=== PATIENT | female | born 1985 | race Caucasian/White ===

== ENCOUNTER 2017-10-30 14:00 | Emergency (ER) | payer OTHER ==
[2017-10-30 14:06] VITALS: BP 137/79
[2017-10-30 14:23] LABS: BILIRUBIN,URINE NEGATIVE (NEGATIVE); GLUCOSE, URINE (UA) NEGATIVE (NEGATIVE); KETONES,URINE (UA) NEGATIVE (NEGATIVE); LEUKOCYTE ESTERASE, URINE LARGE (NEGATIVE); NITRITE,URINE NEGATIVE (NEGATIVE); OCCULT BLOOD,URINE LARGE (NEGATIVE); PROTEIN,URINE NEGATIVE (NEGATIVE); UROBILINOGEN,URINE 0.2 (NORMAL) E.U./dL (NORMAL)
[2017-10-30 14:24] LABS: CLARITY,URINE CLOUDY (CLEAR); HCG UR QUAL NEGATIVE
[2017-10-30] MEDS ORDERED: NITROFURANTOIN MACRO 100 MG CAPSULE PO STA (14:40)
[2017-10-30] MEDS ORDERED: PHENAZOPYRIDINE 100 MG TABLET PO STA (14:40)
--- NOTE | 2017-10-30 14:42 | ED Physician Documentation ---
PD HPI FEMALE - Stated complaint Stated Complaint: FEMALE - Chief complaint Chief Complaint: Abd Pain - History obtained from History obtained from: Patient - History of Present Illness Timing - onset: Today (Urinary frequency and dysuria starting last night, no frequent UTIs only one in her life. No flank pain or fevers.) Review of Systems Constitutional: denies: Fever, Chills GI: denies: Abdominal Pain, Nausea : reports: Dysuria, Frequency. 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, Other - Present Medications Home Medications: Ambulatory Orders Medication Instructions Recorded Confirmed Levothyroxine Sodium [Synthroid] 10/30/17 10/30/17 Nitrofurantoin Monohyd/M-Cryst 1 tab PO BID 5 Days capsule 10/30/17 [Macrobid 100 mg Capsule] Phenazopyridine HCl [Pyridium] 200 mg PO TID #6 tablet 10/30/17 - Allergies Allergies/Adverse Reactions: Allergies Allergy/AdvReac Type Severity Reaction Status Date / Time No Known Drug Allergies Allergy Verified 10/30/17 14:05 - Social History Does the pt smoke?: Yes Smoking Status: Current every day smoker Does the pt drink ETOH?: Yes Does the pt have substance abuse?: No - Immunizations Immunizations are current?: Yes Immunizations: TDAP >10years/unknown PD ED PE NORMAL - Vitals Vital signs reviewed: Yes - General General: Alert and oriented X 3, No acute distress - Abdomen Abdomen: Soft, Non tender - Back Back: No CVA TTP - Neuro Neuro: Alert and oriented X 3, Normal speech Results - Vitals Vitals: Vital Signs - 24 hr 10/30/17 14:03 Temperature 36.5 C Heart Rate 74 Respiratory 20 Rate Blood Pressure 137/79 H O2 Saturation 100 Oxygen O2 Source Room air - Labs Labs: Laboratory Tests 10/30/17 14:10 Urine Color YELLOW Urine Clarity CLOUDY Urine pH 7.0 Ur Specific [place] 1.010 Urine Protein NEGATIVE Urine Glucose (UA) NEGATIVE Urine Ketones NEGATIVE Urine Occult Blood LARGE H Urine Nitrite NEGATIVE Urine Bilirubin NEGATIVE Urine Urobilinogen 0.2 (NORMAL) Ur Leukocyte Esterase LARGE H Urine RBC 6-10 H Urine WBC >25 H Ur Squamous Epith Cells RARE Squamous Urine Bacteria None Seen Ur Microscopic Review INDICATED Urine Culture Comments INDICATED Urine HCG, Qual NEGATIVE PD MEDICAL DECISION MAKING - Sepsis Event Vital Signs: Vital Signs - 24 hr 10/30/17 14:03 Temperature 36.5 C Heart Rate 74 Respiratory 20 Rate Blood Pressure 137/79 H O2 Saturation 100 Oxygen O2 Source Room air Departure - Departure Disposition: 01 Home, Self Care Clinical Impression: Cystitis Condition: Good Record reviewed to determine appropriate education?: Yes Instructions: ED UTI Cystitis Female Prescriptions: Nitrofurantoin Monohyd/M-Cryst [Macrobid 100 mg Capsule] 1 tab PO BID 5 Days capsule Phenazopyridine HCl [Pyridium] 200 mg PO TID #6 tablet Comments: We will culture your urine, the results should be done in 48-72 hours. If an antibiotic change is necessary we will call you. Return if worse in the meantime, especially if you develop increasing flank pain, fevers, or cannot keep down the medication. Your blood pressure was elevated today on check into the emergency department. This does not mean that you have hypertension, it is a common phenomenon to come to the emergency department and have elevated blood pressure. I recommend that you see your primary care physician within the week to have it rechecked when you are feeling better. Discharge Date/Time: 10/30/17 14:51
[2017-10-30 14:57] LABS: BACTERIA,URINE None Seen /HPF (None Seen); SQUAMOUS EPITHELIAL CELL,UR RARE Squamous (<= Few)
--- NOTE | 2017-11-03 06:14 | ED Physician Documentation ---
ED Addendum - Addendum Addendum: 11/03/17 06:13 Chart accessed for culture review. Culture of urine grows enterobacter aerogenes with intermediate sensitivity to macrobid. Recommend bactrim DS 1 tab PO BID x 7 days
== END 2017-10-30 14:51 | disposition home or self-care (01) ==
LOC: ED 14:00
DX: N30.90 Cystitis, unspecified without hematuria (principal); R03.0 Elevated blood-pressure reading, without diagnosis of hypertension
CPT/HCPCS: 81001; 81025; 87077; 87086; 99283; A9270; 81003; 87181

== ENCOUNTER 2019-01-31 07:55 | Emergency (ER) | payer OTHER ==
[2019-01-31 08:23] VITALS: BP 111/72
--- NOTE | 2019-01-31 09:23 | ED Physician Documentation ---
PD HPI BACK PAIN - Stated complaint Stated Complaint: BACK PX - Chief complaint Chief Complaint: Back Pain - History obtained from History obtained from: Patient - History of Present Illness Timing - onset: Today Timing - duration: Hours (2.5) Timing - details: Abrupt onset, Still present in ED Location: Lower Quality: Pain Associated symptoms: Numbness (Chronic in left foot). No: Fever, Weakness, Incontinent of urine Improves with: Nothing Worsened by: Movement Similar symptoms before: Work up / diagnostics Recently seen: Not recently seen - Additional information Additional information: This is a 33-year-old woman who presents with complaints that she threw her back out putting a towel on her wet hair this morning at about 715 and she was getting out of the shower. She had taken her Synthroid right before this happened and she is not allowed to eat or drink anything for an hour afterwards so she did not take any medications for it just came straight to the emergency department for treatment. She says the pain is in the " center" of her lower back and radiates down towards the gluteal midline. Denies pain radiating down the legs but her left leg is numb chronically. She also has a broken left foot fifth metatarsal Kaiser fracture since September and she was in so much pain she was anyone able to put the boot on today. She denies any prior back surgery but had an MRI a year and a half ago that showed osteoarthritis, pinched nerves and degenerative disc disease. That exam was done in [facility]. Patient denies any urinary incontinence. States she cannot get because she does not have any tubes. 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 No recent illness. Review of Systems Constitutional: denies: Fever GI: denies: Vomiting : denies: Dysuria, Incontinent Skin: denies: Rash Musculoskeletal: reports: Back pain Neurologic: reports: Numbness (Chronic of the left foot). 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, Other - Present Medications Home Medications: Ambulatory Orders Medication Instructions Recorded Confirmed Levothyroxine Sodium [Synthroid] 10/30/17 10/30/17 - Allergies Allergies/Adverse Reactions: Allergies Allergy/AdvReac Type Severity Reaction Status Date / Time No Known Drug Allergies Allergy Verified 01/31/19 08:23 - Social History Does the pt smoke?: Yes Smoking Status: Current every day smoker Does the pt drink ETOH?: Yes Does the pt have substance abuse?: No - Immunizations Immunizations are current?: Yes Immunizations: TDAP >10years/unknown PD ED PE NORMAL - Vitals Vital signs reviewed: Yes - General General: Alert and oriented X 3, Well developed/nourished, Other (Sitting bolt upright on the exam chair supporting her weight on the right arm resting most of her weight on the left buttock.) - Respiratory Respiratory: No respiratory distress - Back Back: No CVA TTP, Other (There is diffuse tenderness from about 04 through the sacral region. 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 She has had physical therapy before and is aware of gentle stretching exercises which she can begin today. Ice today and avoid just laying on the couch or bed. She does not plan to go to work today but does not feel she needs a note. Encouraged to take ibuprofen [id number] for pain. Departure - Departure Disposition: 01 Home, Self Care Clinical Impression: Back pain Condition: Good Instructions: IBUPROFEN (Adult), Low Back Pain Self Care, ED Exercises Lumbar Muscles Follow-Up: [facility] [Provider Group] Comments: Home today and rest. Apply ice to the lower back. Avoid lifting, twisting, stooping. Gentle stretching exercises are appropriate. Take ibuprofen 3 to 4 tablets every 8 hours [id number] with food. [place] further pain management if needed.
[2019-01-31] MEDS ORDERED: KETOROLAC 60 MG/2 ML VIAL IM STA (09:38)
== END 2019-01-31 09:56 | disposition home or self-care (01) ==
LOC: ED 07:55
DX: M54.5 Low back pain (principal); R20.0 Anesthesia of skin; E03.9 Hypothyroidism, unspecified; F17.200 Nicotine dependence, unspecified, uncomplicated
CPT/HCPCS: 96372; 99282; 99283

== ENCOUNTER 2019-06-17 07:01 | Outpatient (CLI) | payer OTHER ==
--- NOTE | 2019-06-17 14:45 | MRI Report ---
Reason: LOW BACK PAIN Procedure Date: 06/17/2019 Accession Number: [id number] / [id number] Procedure: MRI - Lumbar Spine W/O CPT Code: Final Report FULL RESULT: EXAM: MRI LUMBAR SPINE WITHOUT CONTRAST EXAM DATE: 06/17/2019 08:11 AM. CLINICAL HISTORY: Low back pain. COMPARISON: None. TECHNIQUE: Multiplanar, multisequence T1-weighted and fluid-sensitive sequences of the lumbar spine from T12 to S1 without contrast. Other: None. FINDINGS: Spinal Canal: The conus terminates at T12-L1. The conus medullaris and cauda equina are unremarkable. Alignment: No scoliosis or spondylolisthesis. Bone Marrow: Five vie-gyr-mxlncft lumbar vertebral bodies are assumed. No gross fractures or bone lesions. No bone marrow replacement. Disk Levels/Facets: T12-L1: Unremarkable. L1-L2: Unremarkable. L2-L3: Normal disk, prominent facets. No stenosis. L3-L4: Normal disk and prominent facets. No stenosis. L4-L5: Mild broad-based bulge. Prominent facets. No stenosis. L5-S1: Left paracentral disk extrusion with mass-effect on the left S1 root in the subarticular zone. Series 901 image 3. Moderate central stenosis. Neural foramina are normal. Prominent facets. Musculature: Mild fatty atrophy of the multifidus muscle is seen. Other: The partially visualized retroperitoneum is unremarkable. IMPRESSION: 1. The conus terminates at T12-L1 which is normal. 2. L4-L5 shows mild broad-based bulge, no stenosis. 3. L5-S1 shows a left paracentral disk extrusion with mass-effect on the left S1 root of the subarticular zone. Moderate central stenosis. Neural foramina are normal. Comment: The following findings are so common in adults without low back pain that while we report their presence, they must be interpreted with caution and in the context of the clinical situation. (Reference Avelinok et al, Spine 2001) Prevalence of findings in patients without low back pain: Disk degeneration (any evidence): 92% Disk desiccation/T2 signal loss: 83% Disk height loss: 56% Disk bulge: 64% Disk protrusion: 32% Annular tear/high intensity zone: 38% RADIA
== END 2019-06-17 07:02 | disposition home or self-care (01) ==
LOC: DI 07:01
DX: M51.27 Other intervertebral disc displacement, lumbosacral region (principal); M48.07 Spinal stenosis, lumbosacral region; M51.86 Other intervertebral disc disorders, lumbar region
CPT/HCPCS: 72148

== ENCOUNTER 2019-12-10 13:27 | Outpatient (CLI) | payer OTHER ==
--- NOTE | 2019-12-10 14:01 | SLEEP CARE CONSULTATION ---
Information from patient questionnaire entered by Edith Camarena. I have reviewed and concur with the information entered by Edith Camarena. This document represents the service I personally performed and the decisions made by me, Kathryn Martins MD, [facility]. History of Present Illness Service Date and Time: 12/10/2019 1327 Reason for Visit: New patient Chief Complaint: reports: Unrefreshed sleep, Excessive daytime sleepiness Date of Onset: almost 8 years Usual bedtime: 10 pm Time it takes to fall asleep: varies, as soon as i put my head down or 2 hours Snores at night: Yes Observed to quit breathing while asleep: No Sleeps alone due to snoring: No Number of times waking at night: 3-4 Reasons for waking at night: reports: Other (dreams) Toss, Turn, or Twitch while sleeping: Yes Recalls having dreams: Yes Usually gets out of bed at: 6-7 am Feels refreshed in the morning: No Morning headache: No Sleepy or fatigued during the day: Yes Ever fallen asleep while driving: No Takes day naps: Yes Dreams during day naps: Yes Prior sleep studies: No Additional HPI information: I had the pleasure of seeing Ms. Burrell today regarding the possibility of her having a sleep disorder. As you know, she is a 34 year old lady who complains of unrefreshed sleep and excessive daytime sleepiness for 8 years. The patient tells me that she normally goes to bed around 10 pm, and it takes her from just a few minutes to 2 hours to fall asleep. She has been told that she snores loudly and irregularly at night. She has never been observed to stop breathing in her sleep. She now sleeps alone. She can recall waking up on the average of 3 - 4 times during the night. Most of the time she wakes up because of dreams. She has never awakened because of her own snoring, choking, or having to gasp for air. There is a lot of tossing and turning in her sleep. No somniloquy (sleep talking) or somnambulism (sleep walking). Generally she can recall having dreams. In the morning she usually gets up out of the bed around 6 - 8 a.m. not feeling refreshed nor rested. She usually does not have a morning headache. During the day she complains of feeling sleepy and fatigued. Her sc ore on [place] Sleepiness Scale is 10 out of 24. She has never fallen asleep while driving nor has had any accident due to sleepiness. She usually takes naps during the day. Upon falling asleep during the day she reports having dreams. She has had sleep paralysis. She reports symptoms of restless leg syndrome. She reports having impaired concentration during the day. 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 Patient is and lives in [place]. Cigarettes per day (20/pack): 10 Years of smokin Smoking Pack Years: 10.0 Alcohol use: No Caffeine use: Yes Caffeine amount and frequency: 1-2 a day Family History Family history of sleep disordered breathing: Yes (mom snored(), dad snores) Family Hx Sleep Apnea: Mother: Snoring, Father: Snoring Allergies and Home Medications Drug allergies reviewed: Yes (NKDA) Home medication list reviewed: Yes (Synthroid) Review of Systems Cardiovascular: denies: high blood pressure, palpitations, chest pain, irregular heart rate or pulse, leg or foot swelling, have to sleep sitting up, other Respiratory: denies: shortness of breath, wheeze, sputum production, chronic cough, other Gastrointestinal: reports: heartburn Urinary: denies: incontinence, frequency, urgency, impotence, other Neurological: denies: headaches, seizure, head trauma, disorientation, speech dysfunction, gait or balance problems, fainting or unconsciousness, other Psychiatric: denies: Attention Deficit Hyperactivity, anxiety, depression, mood disorder, claustrophobia, other Ear/Nose/Throat: reports: nasal congestion (broken nose), sinus problems Endocrine: reports: thyroid disease, history of goiter Musculoskeletal: reports: back pain Immunologic: denies: sneezing, rash, itching, allergies to food or environment, other Physical Exam Height: 5 ft 7 in Weight: 178 lb Body Mass Index: 27.8 BMI Classification: Overweight Impression and Plan IMPRESSION: 1. Hypersomnia, despite getting adequate sleep at night. Sleep-disordered breathing is a possibility given loud snore, frequent awakenings, unrefreshed sleep, and overweight. She also have symptoms suggestive of narcolepsy: sleep paralysis and hypnagogia. Therefore, I will order an in-laboratory polysomnography follwed by multiple sleep latency test (MSLT). The latter will be canceled if sleep disrupting condition(s) is found during the night study. Plan: 1. Schedule an in-laboratory polysomnography + multiple sleep latency test (MSLT). 2. Avoid long distance driving or when feeling sleepy. 3. Avoid alcohol, sedative and muscle relaxant around bedtime. 4. Attempt to lose some weight. 5. Return in 1 to 2 weeks after the study to discuss results and initiate therapy Visit Type: Telehealth Video Video Type: [employer] Patient Location: Home Location of Provider: Home Patient agrees and consents to this telehealth visit type: Yes Patient agrees to have their insurance billed: Yes Time Spent with Patient (minutes): 15 Provider Statement: I spent 100% of the Telehealth Video Call with the patient with greater than 50% spent counseling the patient and coordination of care.
== END 2019-12-10 13:28 | disposition home or self-care (01) ==
LOC: SC 13:27
PROVIDERS: ATTEND Internal Medicine Pulmonary Disease
DX: G47.10 Hypersomnia, unspecified (principal); G47.8 Other sleep disorders; R06.83 Snoring; R41.89 Other symptoms and signs involving cognitive functions and awareness; E66.3 Overweight; Z68.27 Body mass index [BMI] 27.0-27.9, adult; F17.210 Nicotine dependence, cigarettes, uncomplicated

== ENCOUNTER 2020-01-28 20:35 | Outpatient (CLI) | payer OTHER | END 2020-01-28 20:36 | disposition home or self-care (01) | LOC: SC 20:35 | PROVIDERS: ATTEND Internal Medicine Pulmonary Disease | DX: G47.33 Obstructive sleep apnea (adult) (pediatric) (principal); E66.3 Overweight; Z68.27 Body mass index [BMI] 27.0-27.9, adult | CPT/HCPCS: 95810 ==

== ENCOUNTER 2020-02-18 09:10 | Outpatient (CLI) | payer OTHER ==
--- NOTE | 2020-03-06 15:23 | SLEEP CARE CONSULTATION ---
Information from patient questionnaire entered by Edith Camarena. I have reviewed and concur with the information entered by Edith Camarena. This document represents the service I personally performed and the decisions made by , Abbey Dunaway ARNP. History of Present Illness Service Date and Time: 02/18/2020909 Initial [place] Sleepiness Scale score: 10 (in 2020) Current [place] Sleepiness Scale score: 8 Additional HPI information: CARMINA MORALES returns via Telehealth visit for follow up and results of the recently performed polysomnography. I explained the pathophysiology behind obstructive sleep apnea. We then spent quite a bit of time discussing different treatment options. For mild obstructive sleep apnea, surgery and oral appliance are alternatives to nasal CPAP therapy but in moderate or severe cases, nasal CPAP is the most effective and reliable treatment. Because apnea is primarily in supine position, then positional management therapy could be effective. Methods discussed such as positioning with pillows, using a T-shirt with tennis balls in the back, and shown commercial products that have a pillow format on back to prevent supine sleep. I reviewed the impact of weight changes on sleep apnea and strongly recommended losing weight. After some discussion, the patient opted to go with the nasal CPAP therapy. Nasal autoCPAP set at [id number] will be ordered with rationale explained. A manual titration study will be ordered if unable to find optimal pressure with office adjustments. I explained how CPAP machine works with sample devices Respironics Dreamstation and ReseBillme [id number] and what to expect when using the machine. Using CPAP every night in order to get used to it was emphasized. Patient advised to put CPAP mask on before getting into bed so as not to fall asleep without CPAP. To assist acclimation to CPAP use, it could also be used for a short time during day while reading or watching TV. The patient was instructed to call the CPAP supplier to discuss any mechanical problem that may occur. If the mask given is uncomfortable or is difficult to keep on through the night even with adjustment, contact the CPAP supplier as many will replace with another mask style if notified before 30 days. If snoring or perceives is not getting enough air or too much air from the machine, notify this office. Sleep Study - Results Type of Sleep Study: Polysomnography Prior sleep studies: No Polysomnography/Home Sleep Study results: IMPRESSION: The quality of the study is good. The patient had slightly reduced sleep efficiency due to two prolonged awakenings after the sleep onset. The sleep architecture was normal. Respiratory monitoring showed mild obstructive sleep apnea-hypopnea (AHI = 7.4) associated with oxyhemoglobin desaturation and mild hypoxia (argelia oxygen saturation of 88%) but not sleep fragmentation. The respiratory events occurred almost exclusively during supine sleep (supine AHI = 17.1; non-supine = 0.82). Snore was light in intensity. There was no significant periodic leg movement of sleep. Cardiac rhythm was normal sinus rhythm without significant arrhythmia. No abnormal behavior (parasomnia) observed during the night. Allergies and Home Medications Drug allergies reviewed: Yes (NKDA) Home medication list reviewed: Yes (no changes) Review of Systems Review of systems same as previous: Yes (no changes) Physical Exam Vital signs obtained and entered by: Telehealth to reduce exposure during Covid pandemic Height: 5 ft 7 in Impression and Plan 1. Obstructive Sleep Apnea-Hypopnea Syndrome, mild, with lowest oxygen saturation of 88%. Obviously this is the cause of the patients symptoms of unrefreshed sleep, and excessive daytime sleepiness. As mentioned above, the patient will be started on nasal autoCPAP therapy with pressure set at 4-15 cmH2 O. A manual titration study will be completed if unable to find optimal treatment pressure with office adjustments. Compliance guidelines also reviewed. A copy of compliance guidelines will be given for reference at check out. Because the apnea is more severe supine, I instructed to avoid sleeping supine using pillow positioning until able to start CPAP use. * Nasal auto CPAP therapy, pressure at 4-15 cm H2O. * Attempt to lose weight. * Avoid alcohol consumption near bedtime. * Avoid supine sleep until using CPAP. * The patient is again cautioned about driving until sleepiness completely resolves. * Return one month after CPAP obtained. I will assess response to therapy and compliance at that time. Visit Type: Telehealth Video Video Type: [employer] Patient Location: Home Location of Provider: Office Patient agrees and consents to this telehealth visit type: Yes Patient agrees to have their insurance billed: Yes Time Spent with Patient (minutes): 16 Provider Statement: I spent 100% of the Telehealth Video Call with the patient with greater than 50% spent counseling the patient and coordination of care.
== END 2020-02-18 09:11 | disposition home or self-care (01) ==
LOC: SC 09:10
PROVIDERS: ATTEND Nurse Practitioner Family
DX: G47.33 Obstructive sleep apnea (adult) (pediatric) (principal)

== ENCOUNTER 2020-05-08 15:04 | Outpatient (CLI) | payer OTHER ==
--- NOTE | 2020-05-08 15:28 | SLEEP CARE CONSULTATION ---
Information from patient questionnaire entered by Krys Abbott. I have reviewed and concur with the information entered by Krys Abbott. This document represents the service I personally performed and the decisions made by , Abbey Dunaway ARNP. History of Present Illness Service Date and Time: 05/08/2020 1504 Previous diagnosis: Mild, Obstructive Sleep Apnea-Hypopnea Syndrome AHI: 7.4 Reason for follow up: first compliance (04/04) Equipment type: CPAP Equipment obtained from: Other ([facility]; got initial supplies so far) Mask style: Nasal Backup mask available: Yes (other masks) Last cushion change: 1 month Prior sleep studies: No Year and Where: 2019 [facility] Type of Sleep Study: Polysomnography HPI additional information: CARMINA MORALES was diagnosed to have mild, AHI 7.4, obstructive sleep apnea- hypopnea syndrome and returned today for CPAP therapy first compliance follow- up. CPAP Compliance Data - Data Reviewed with Patient Average duration of nightly device use: 6 h 14 min Compliance rate %: 80 Current pressure setting (cmH2O): 4-15 (6.6 median, 8.8 average, 9.1 maximum) Humidity settin Heated hose settin Average residual AHI: 2.5 Central apnea: 0.3 Obstructive apnea: 1.3 Average large leak: 13 sec Subjective Patient concerns: denies: aerophagia, mask discomfort, air blowing in eyes, mask leak noise, condensation in mask/hose, nasal congestion, dry mouth, nose, throat, epistaxis, other Observed to snore while using device: No Current pressure setting perceived as: too low (only when starting the CPAP machine) On therapy, patient: denies: sleeping better, awakening more refreshed, being more awake and alert during the day, more rested overall, drowsiness while driving Initial [place] Sleepiness Scale score: 10 (in 2020) Current [place] Sleepiness Scale score: 6 Allergies and Home Medications Drug allergies reviewed: Yes (NKDA) Home medication list reviewed: Yes (no changes) Review of Systems Review of systems same as previous: Yes (no changes) Physical Exam Heart Rate: 64 O2 Saturation: 96 Height: 5 ft 7 in Weight: 180 lb Body Mass Index: 28.1 BMI Classification: Overweight Impression and Plan 1. Obstructive Sleep Apnea-Hypopnea Syndrome, mild, with good treatment compliance and good apnea control. On CPAP therapy, the patient states she does not feel she is sleeping better, can still fall asleep if she stops doing anything but her [place] scale is a 6/24, down from a 10/24 at initial evaluation. She states she puts on the mask and reads for a little bit before going to sleep and at the onset the pressure seems low at first but then once it builds up it is fine. I will adjust her pressure to 7-9 cmH2O to reflect the pressure she is using overall. Patient to let me know if her pressure seems too high, not enough or she has aerophagia. Patient voiced understanding and agreement with plan. Patient's apnea severity and rationale for treatment to reduce apnea, improve sleep quality and reduce cardiovascular and cerebrovascular events was reviewed. * Change auto CPAP pressure to 7-9 cmH2O * Notify me if snoring with mask or feeling that the pressure is too much or too little * Attempt to lose weight * Call this office if any problems using CPAP * Return for follow up in 1-2 months, or sooner if concerns arise Counseling Topics: Spare mask, Weight loss health impact Visit Type: In Office Time Spent with Patient (minutes): 14 Provider Statement: I spent 100% of the Face to Face Visit with the patient with greater than 50% spent counseling the patient and coordination of care.
== END 2020-05-08 15:05 | disposition home or self-care (01) ==
LOC: SC 15:04
PROVIDERS: ATTEND Nurse Practitioner Family
DX: G47.33 Obstructive sleep apnea (adult) (pediatric) (principal); E66.3 Overweight; Z68.28 Body mass index [BMI] 28.0-28.9, adult
CPT/HCPCS: 99212

== ENCOUNTER 2020-06-11 16:00 | Outpatient (CLI) | payer OTHER ==
--- NOTE | 2020-06-11 16:10 | SLEEP CARE CONSULTATION ---
Information from patient questionnaire entered by Krys Abbott. I have reviewed and concur with the information entered by Krys Abbott. This document represents the service I personally performed and the decisions made by me, Abbey Dunaway ARNP. History of Present Illness Service Date and Time: 06/11/2020 1600 Previous diagnosis: Mild, Obstructive Sleep Apnea-Hypopnea Syndrome AHI: 7.4 Reason for follow up: one month (followup - pressure change) Equipment type: CPAP Equipment obtained from: Other ([facility]; getting supplies as needed) Mask style: Nasal Backup mask available: Yes (other mask) Prior sleep studies: No Year and Where: 2019 [facility] Type of Sleep Study: Polysomnography HPI additional information: CARMINA MORALES was diagnosed to have mild, AHI 7.4, obstructive sleep apnea- hypopnea syndrome and returns via Telehealth visit today for CPAP therapy 1 month pressure change follow-up. CPAP Compliance Data - Data Reviewed with Patient Average duration of nightly device use: 6 h 41 min Compliance rate %: 90 Current pressure setting (cmH2O): 7-9 Humidity settin Heated hose settin Average residual AHI: 2.3 Average large leak: 52 sec Subjective Patient concerns: denies: aerophagia, mask discomfort, air blowing in eyes, mask leak noise, condensation in mask/hose, nasal congestion, dry mouth, nose, throat, epistaxis, other Observed to snore while using device: No Current pressure setting perceived as: comfortable On therapy, patient: reports: sleeping better, awakening more refreshed, being more awake and alert during the day, more rested overall. denies: drowsiness while driving Initial [place] Sleepiness Scale score: 10 (in 2020) Current [place] Sleepiness Scale score: 10 Allergies and Home Medications Home medication list reviewed: Yes (no new medications; Covid vaccine 1st) Review of Systems Review of systems same as previous: Yes (no changes) Physical Exam Vital signs obtained and entered by: Telehealth visit to limit exposure during Covid pandemic Height: 5 ft 7 in Impression and Plan 1. Obstructive Sleep Apnea-Hypopnea Syndrome, mild, with good treatment compliance and good apnea control. On CPAP therapy, the patient has better sleep quality and is more rested overall. She thinks the current pressure is c omfortable. We will continue the pressure at 7-9 cmH2O. She has no issues with the CPAP use or mask. She is waiting to get the right size mask since they sent her the wrong size but otherwise she is happy with their service. Patient's apnea severity and rationale for treatment to reduce apnea, improve sleep quality and reduce cardiovascular and cerebrovascular events was reviewed. * Continue auto CPAP pressure at 7-9 cmH2O * Notify me if snoring with mask or feeling that the pressure is too much or too little * Attempt to lose weight * Call this office if any problems using CPAP * Return for follow up in 3 months, or sooner if concerns arise Counseling Topics: Spare mask, Weight loss health impact Visit Type: Telehealth Video Video Type: VSee Patient Location: Home Location of Provider: Office Patient agrees and consents to this telehealth visit type: Yes Patient agrees to have their insurance billed: Yes Time Spent with Patient (minutes): 12 Provider Statement: I spent 100% of the Telehealth Video Call with the patient with greater than 50% spent counseling the patient and coordination of care.
== END 2020-06-11 16:01 | disposition home or self-care (01) ==
LOC: SC 16:00
PROVIDERS: ATTEND Nurse Practitioner Family
DX: G47.33 Obstructive sleep apnea (adult) (pediatric) (principal)

== ENCOUNTER 2020-09-10 15:55 | Outpatient (CLI) | payer OTHER ==
--- NOTE | 2020-09-10 16:08 | SLEEP CARE CONSULTATION ---
Information from patient questionnaire entered by Krys Abbott. I have reviewed and concur with the information entered by Krys Abbott. This document represents the service I personally performed and the decisions made by me, Abbey Dunaway ARNP. History of Present Illness Service Date and Time: 09/10/2020 1555 Previous diagnosis: Mild, Obstructive Sleep Apnea-Hypopnea Syndrome AHI: 7.4 Reason for follow up: three month Equipment type: CPAP Equipment obtained from: Other ([facility]; getting supplies as needed) Mask style: Nasal Backup mask available: Yes (other mask) Last cushion change: last week Prior sleep studies: No Year and Where: 2019 [facility] Type of Sleep Study: Polysomnography HPI additional information: CARMINA MORALES was diagnosed to have mild, AHI 7.4, obstructive sleep apnea- hypopnea syndrome and returned today for CPAP therapy three month follow-up. CPAP Compliance Data - Data Reviewed with Patient Average duration of nightly device use: 6 h 41 min Compliance rate %: 88.3 Current pressure setting (cmH2O): 7-9 Humidity settin Heated hose settin Average residual AHI: 2.5 Average large leak: 1 min 2 sec Subjective Patient concerns: denies: aerophagia, mask discomfort, air blowing in eyes, mask leak noise, condensation in mask/hose, nasal congestion, dry mouth, nose, throat, epistaxis, other Observed to snore while using device: No Current pressure setting perceived as: comfortable On therapy, patient: reports: sleeping better, awakening more refreshed, being more awake and alert during the day, more rested overall (not as groggy as she used to be). denies: drowsiness while driving Initial [place] Sleepiness Scale score: 10 (in 2020) Current [place] Sleepiness Scale score: 8 Allergies and Home Medications Home medication list reviewed: Yes (no changes) Review of Systems Review of systems same as previous: Yes (no changes) Physical Exam Vital signs obtained and entered by: Telehealth visit to reduce exposure during covid pandemic Height: 5 ft 7 in Impression and Plan 1. Obstructive Sleep Apnea-Hypopnea Syndrome, mild, with good treatment compliance and good apnea control. On CPAP therapy, the patient has better sleep quality and is more rested overall. Patient is satisfied with treatment and feeling less "groggy" during the day. She is still having vivid dreams but states she is not sure if this is going to go away. She is comfortable with current pressure settings and voiced no issues or concerns today. Patient encouraged to lose weight as this will reduce apneas and improve her overall health. Patient's apnea severity and rationale for treatment to reduce apnea, improve sleep quality and reduce cardiovascular and cerebrovascular events was reviewed. * Continue auto CPAP pressure at 7-9 cmH2O * Notify me if snoring with mask or feeling that the pressure is too much or too little * Attempt to lose weight * Call this office if any problems using CPAP * Return for follow up in 6 months, or sooner if concerns arise Counseling Topics: Spare mask, Weight loss health impact Visit Type: Telehealth Video Video Type: VSee Patient Location: Home Location of Provider: Office Patient agrees and consents to this telehealth visit type: Yes Patient agrees to have their insurance billed: Yes Time Spent with Patient (minutes): 10 Provider Statement: I spent 100% of the Telehealth Video Call with the patient with greater than 50% spent counseling the patient and coordination of care.
== END 2020-09-10 15:56 | disposition home or self-care (01) ==
LOC: SC 15:55
PROVIDERS: ATTEND Nurse Practitioner Family
DX: G47.33 Obstructive sleep apnea (adult) (pediatric) (principal)

== ENCOUNTER 2022-02-21 12:46 | Outpatient (CLI) | payer OTHER ==
--- NOTE | 2022-02-21 16:57 | MRI Report ---
PROCEDURE: CERVICAL SPINE WO INDICATIONS: CERVICAL RADICULOPATHY TECHNIQUE: Noncontrast sagittal T1 spin echo and T2 fast spin echo, sagittal STIR, foraminal oblique sagittal T2 fast spin echo, and axial gradient echo or T2 fast spin echo through the cervical spine. COMPARISON: None. FINDINGS: Image quality: Excellent. Alignment and Curvature: There is loss of normal cervical lordosis and otherwise normal bony alignme nt. Bone Marrow: Marrow demonstrates normal overall signal. Spinal Cord: Visualized spinal cord has normal size and signal. No cerebellar tonsillar herniation. Paraspinous Soft Tissues: No paravertebral masses. Prevertebral soft tissues are normal in thicknes s. C2-C3: Normal in appearance. C3-C4: Normal in appearance. C4-C5: Normal in appearance. C5-C6: Normal in appearance. C6-C7: Normal in appearance. C7-T1: Normal in appearance. IMPRESSION: 1. Loss of normal cervical lordosis, suggestive of muscle spasm. 2. No significant canal, nor foraminal stenosis. No neural impingement. Reviewed by: Chencho Gama MD on 02/21/2022 4:55 PM PST Approved by: Chencho Gama MD on 02/21/2022 4:55 PM PST Station ID: [id number]
== END 2022-02-21 12:47 | disposition home or self-care (01) ==
LOC: DI 12:46
PROVIDERS: ATTEND Student in an Organized Health Care Education/Training Program
DX: M54.12 Radiculopathy, cervical region (principal)

== ENCOUNTER 2022-12-23 09:04 | Outpatient (CLI) | payer OTHER ==
--- NOTE | 2022-12-23 10:29 | MRI Report ---
PROCEDURE: CERVICAL SPINE WO INDICATIONS: POLYNEUROPATHY, LUMBAR RADICULOPATHY TECHNIQUE: Noncontrast sagittal T1 spin echo and T2 fast spin echo, sagittal STIR, foraminal oblique sagittal T2 fast spin echo, and axial gradient echo or T2 fast spin echo through the cervical spine. COMPARISON: None. FINDINGS: Image quality: Excellent. Alignment and Curvature: There is normal bony alignment. There is reversal of the normal lordotic cu rve of the cervical spine which may be positional or may represent muscle spasm. Bone Marrow: Marrow demonstrates normal overall signal. Spinal Cord: Visualized spinal cord has normal size and signal. No cerebellar tonsillar herniation. Paraspinous Soft Tissues: No paravertebral masses. Prevertebral soft tissues are normal in thicknes s. C2-C3: Normal in appearance. C3-C4: Normal in appearance. C4-C5: Normal in appearance. C5-C6: Normal in appearance. C6-C7: Normal in appearance. C7-T1: Normal in appearance. IMPRESSION: 1. Reversal of normal lordotic curve, possibly positional or possibly representing muscle spasm. 2. Otherwise unremarkable study. No canal stenosis or foraminal stenosis. Normal cervical cord signal . Reviewed by: Carlito Guy MD on 12/23/2022 10:27 AM PDT Approved by: Carlito Guy MD on 12/23/2022 10:27 AM PDT Station ID: [id number]
--- NOTE | 2022-12-23 11:06 | MRI Report ---
PROCEDURE: LUMBAR SPINE WO INDICATIONS: POLYNEUROPATHY, LUMBAR RADICULOPATHY TECHNIQUE: Noncontrast sagittal T1 spin echo and T2 fast echo, sagittal STIR, axial T1 and T2 fast spin echo thr ough the lumbar spine. In cases with scoliosis, additional coronal T2 fast spin echo may be performe d. COMPARISON: 06/17/2019 FINDINGS: Image quality: Excellent. Alignment and Curvature: There is normal bony alignment. Bone Marrow: Marrow is of normal overall signal. No acute vertebral body compression fractures. Spinal Cord: Conus medullaris terminates at the L1 level. Visualized cord demonstrates normal signa l and size. Paraspinous Soft Tissues: No paravertebral masses. T12-L1: Normal in appearance. L1-L2: Normal in appearance. L2-L3: Facet hypertrophy. Minimal disc bulge. No significant canal stenosis or foraminal stenosis. L3-L4: Facet hypertrophy. No canal stenosis or foraminal stenosis. L4-L5: Somewhat progressive findings. Disc bulge. Facet and ligament hypertrophy. Mild to moderate canal stenosis. No foraminal stenosis. L5-S1: Similar to the previous study. Left paracentral annulus tear. Moderately large broad-based dis c bulge. Facet and ligament hypertrophy. Moderate to severe canal stenosis. No significant foraminal stenosis. IMPRESSION: 1. At L5-S1, there is a moderately large broad-based disc bulge and facet and ligament hypertrophy. T here is moderate to severe canal stenosis 2. Mildly progressive findings at L4-L5. There is mild to moderate canal stenosis. 3. Multilevel underlying facet arthropathy.. Reviewed by: Carlito Guy MD on 12/23/2022 11:05 AM PDT Approved by: Carlito Guy MD on 12/23/2022 11:05 AM PDT Station ID: [id number]
== END 2022-12-23 09:05 | disposition home or self-care (01) ==
LOC: DI 09:04
PROVIDERS: ATTEND Student in an Organized Health Care Education/Training Program
DX: G62.9 Polyneuropathy, unspecified (principal); M51.37 Other intervertebral disc degeneration, lumbosacral region; M48.07 Spinal stenosis, lumbosacral region; M47.26 Other spondylosis with radiculopathy, lumbar region; M48.061 Spinal stenosis, lumbar region without neurogenic claudication

== ENCOUNTER 2023-01-19 15:12 | Outpatient (CLI) | payer OTHER ==
--- NOTE | 2023-01-19 15:47 | Sleep Patient Instructions ---
Sleep Center Visit Summary - Patient Visit Information Reason for Visit: Annual Visit - Patient Instructions Additional Instructions: You will continue with CPAP therapy with pressure set at 7-9 cmH2O. A supply prescription will be updated with your DME. We encourage you to continue to try to lose weight. Please follow up with the sleep care office in 1 year. - Clinic Information Contact: [facility] [address] [place] [address] [email or web address] T: [phone]
--- NOTE | 2023-01-19 15:55 | SLEEP CARE CONSULTATION ---
Information from patient questionnaire entered by Helena Mederos. I have reviewed and concur with the information entered by Helena Mederos. This document represents the service I personally performed and the decisions made by me, Abbey Dunaway ARNP. History of Present Illness Service Date and Time: 01/19/2023 1512 Previous diagnosis: Mild, Obstructive Sleep Apnea-Hypopnea Syndrome AHI: 7.4 Reason for follow up: annual (LAST SEEN 10/2021) Equipment type: CPAP (RESMED 10; s/u 12/2021; SD CARD NEEDED FOR DOWNLOAD) Equipment obtained from: Other ([facility]) Mask style: Nasal Mask brand: Respironics (Dreamwear, medium cushion) Backup mask available: Yes Prior sleep studies: No Year and Where: 2019 [facility] Type of Sleep Study: Polysomnography HPI additional information: CARMINA MORALES was diagnosed to have mild, AHI 7.4, obstructive sleep apnea- hypopnea syndrome and returned today for CPAP therapy annual follow-up. Sleep Study - Results Type of Sleep Study: Polysomnography Prior sleep studies: No Year and Where: 2019 [facility] CPAP Compliance Data - Data Reviewed with Patient Average duration of nightly device use: 5 hours 23 minutes Compliance rate %: 20 ( days used) Current pressure setting (cmH2O): 7-9 Average residual AHI: 2.1 Central apnea: 0.2 Obstructive apnea: 1.6 Hypopnea: 0.1 Average large leak: 3.8 L/min Subjective Patient concerns: reports: condensation in mask/hose. denies: aerophagia, mask discomfort, air blowing in eyes, mask leak noise, nasal congestion, dry mouth, nose, throat, epistaxis Observed to snore while using device: No Current pressure setting perceived as: comfortable On therapy, patient: reports: sleeping better, more rested overall. denies: drowsiness while driving Initial [place] Sleepiness Scale score: 10 (in 2019) Current [place] Sleepiness Scale score: 7 (01/19/23) Allergies and Home Medications Known drug allergies: No Drug allergies reviewed: Yes Home medication list reviewed: Yes (Meloxicam) Allergy and home medication list: Allergies No Known Drug Allergies Allergy (Verified 01/18/23 11:20) Review of Systems Review of systems same as previous: Yes (NO CHANGE) Physical Exam Vital signs obtained and entered by: HELENA Katz MA Blood Pressure: 100/68 (LEFT ARM) Cuff size: regular Heart Rate: 65 O2 Saturation: 96 Height: 5 ft 7 in Weight: 187 lb Body Mass Index: 29.2 BMI Classification: Overweight Impression and Plan 1. Obstructive Sleep Apnea-Hypopnea Syndrome, mild, with poor treatment compliance and good apnea control. On CPAP therapy, the patient has better sleep quality and is more rested overall. She has been having a lot of trouble with condensation in her mask. She feels like the machine is trying to drown her. I checked her machine and the humidity is at 2. She said she just reduced it to this because it was higher. She says she does sleep in a cold room. I think this is the cause of the humidity. I will have her put a cover over the tubing to reduce condensation. She can obtain the covers online or make one at home. She may also choose to turn off humidity but I stressed that this is only a good option if she does not get a dry mouth often. I can affect her dental health. She voiced understanding. She would also like to change to a previous mask style, the Alok Dreamwear nasal cushion, small/medium size. I will add this to her prescription update. I will have her return in 1-2 months to see how she is doing with the changes. Patient's apnea severity and rationale for treatment to reduce apnea, improve sleep quality and reduce cardiovascular and cerebrovascular events was reviewed. 2. Overweight, unspecified. Currently patients BMI is 29.2. Obesity increases the risk of apnea, CPAP pressure requirements and overall health risks especially cardiovascular and diabetes. Thus patient is advised to lose weight. * Continue auto CPAP pressure at 7-9 cmH2O * Update supply prescription * Add Alok Dreamwear nasal cushion mask per patient request, small/medium cushion * Notify me if snoring with mask or feeling that the pressure is too much or too little * Attempt to lose weight * Call this office if any problems using CPAP * Return for follow up in 1-2 months, or sooner if concerns arise Counseling Topics: Spare mask, Weight loss health impact Prescriptions: Device supplies Follow up with Sleep Care in: 1-2 months Visit Type: In Office Time Spent with Patient (minutes): 24 Provider Statement: I spent 100% of the Face to Face Visit with the patient with greater than 50% spent counseling the patient and coordination of care.
[2023-01-19 16:00] VITALS: BP 100/68; O2SAT 96
== END 2023-01-19 15:13 | disposition home or self-care (01) ==
LOC: SC 15:12
PROVIDERS: ATTEND Nurse Practitioner Family
DX: G47.33 Obstructive sleep apnea (adult) (pediatric) (principal); E66.3 Overweight; Z68.29 Body mass index [BMI] 29.0-29.9, adult
CPT/HCPCS: 99212; 99213

== ENCOUNTER 2023-02-21 09:08 | Outpatient (CLI) | payer OTHER ==
--- NOTE | 2023-02-21 09:39 | Sleep Patient Instructions ---
Sleep Center Visit Summary - Patient Visit Information Reason for Visit: One Month followup for PAP therapy - Patient Instructions Additional Instructions: You were here for follow up of CPAP therapy. You will be continued on CPAP therapy with pressure at 7-10 cmH2O. Please let us know if the pressure change is uncomfortable and we can make further adjustments of the pressure. You should follow up with sleep care in 12 months. You may contact us sooner for any questions or concerns. - Clinic Information Contact: [facility] [address] [place] [id number] [email or web address] T: [phone]
--- NOTE | 2023-02-21 09:41 | SLEEP CARE CONSULTATION ---
Information from patient questionnaire entered by Helena Mederos. I have reviewed and concur with the information entered by Helena Mederos. This document represents the service I personally performed and the decisions made by , Abbey Dunaway ARNP. History of Present Illness Service Date and Time: 02/21/2023 0908 Previous diagnosis: Mild, Obstructive Sleep Apnea-Hypopnea Syndrome AHI: 7.4 (in 2019) Reason for follow up: one month (F/U) Equipment type: CPAP (Airsense 10; SD CARD NEEDED) Equipment obtained from: Other ([facility]; getting supplies) Mask style: Nasal Mask brand: Respironics (Dreamwear, small cushion) Backup mask available: No (will keep old mask when replaced) Last cushion change: month Prior sleep studies: No Year and Where: 2019 [facility] Type of Sleep Study: Polysomnography HPI additional information: CARMINA MORALES was diagnosed to have mild, AHI 7.4, obstructive sleep apnea- hypopnea syndrome and returned today for CPAP therapy one month follow-up. Sleep Study - Results Type of Sleep Study: Polysomnography Prior sleep studies: No Year and Where: 2019 [facility] CPAP Compliance Data - Data Reviewed with Patient Average duration of nightly device use: 7 hours 15 minutes Compliance rate %: 87 ( days used ) Current pressure setting (cmH2O): 7-9 Average residual AHI: 2.8 Central apnea: 0.4 Obstructive apnea: 2 Hypopnea: 0.2 Average large leak: 7.3 L/min Subjective Patient concerns: denies: aerophagia, mask discomfort, air blowing in eyes, mask leak noise, condensation in mask/hose, nasal congestion, dry mouth, nose, throat, epistaxis Observed to snore while using device: No Current pressure setting perceived as: too low On therapy, patient: reports: sleeping better, awakening more refreshed, being more awake and alert during the day, more rested overall. denies: drowsiness while driving Initial Rupert Sleepiness Scale score: 10 (in 2019) Current Rupert Sleepiness Scale score: 7 Allergies and Home Medications Known drug allergies: No Drug allergies reviewed: Yes Home medication list reviewed: Yes (no changes) Allergy and home medication list: Allergies No Known Drug Allergies Allergy (Verified 11/27/23 08:43) Review of Systems Review of systems same as previous: Yes (no changes) Physical Exam Vital signs obtained and entered by: ABBEY PASCUAL-Sterling Blood Pressure: 98/65 Cuff size: wrist (right) Heart Rate: 69 O2 Saturation: 96 Height: 5 ft 7 in Weight: 192 lb 12.8 oz Body Mass Index: 30.2 BMI Classification: Obese Impression and Plan 1. Obstructive Sleep Apnea-Hypopnea Syndrome, mild, with good treatment complian ce and good apnea control. On CPAP therapy, the patient has better sleep quality and is more rested overall. The patients pressure will be changed to autoCPAP 7-10 cmH20 for patient comfort. Patient advised to contact me if pressure change is uncomfortable so that it can be adjusted. Goals for apnea control discussed. Patient's apnea severity and rationale for treatment to reduce apnea, improve s leep quality and reduce cardiovascular and cerebrovascular events was reviewed. 2. Obesity, unspecified. Currently patients BMI is 30.2. Obesity increases the risk of apnea, CPAP pressure requirements and overall health risks especially cardiovascular and diabetes. Thus patient is advised to lose weight. * Change auto CPAP pressure to 7-10 cmH2O * Notify me if snoring with mask or feeling that the pressure is too much or too little * Attempt to lose weight * Call this office if any problems using CPAP * Return for follow up in 1 year, or sooner if concerns arise Counseling Topics: Spare mask, Weight loss health impact Follow up with Sleep Care in: 1 year Visit Type: In Office Time Spent with Patient (minutes): 20 Provider Statement: I spent 100% of the Face to Face Visit with the patient with greater than 50% spent counseling the patient and coordination of care.
[2023-02-21 09:43] VITALS: BP 98/65; O2SAT 96
== END 2023-02-21 09:09 | disposition home or self-care (01) ==
LOC: SC 09:08
PROVIDERS: ATTEND Nurse Practitioner Family
DX: G47.33 Obstructive sleep apnea (adult) (pediatric) (principal); E66.9 Obesity, unspecified; Z68.30 Body mass index [BMI] 30.0-30.9, adult
CPT/HCPCS: 99212; 99213

== ENCOUNTER 2023-03-24 18:13 | Emergency (ER) | payer OTHER ==
[2023-03-24 18:40] VITALS: O2SAT 100
[2023-03-24] MEDS ORDERED: CYCLOBENZAPRINE 10 MG TABLET PO STA (18:43)
[2023-03-24] MEDS ORDERED: KETOROLAC 60 MG/2 ML VIAL IM STA (18:43)
--- NOTE | 2023-03-24 18:45 | ED Physician Documentation ---
PD HPI BACK PAIN - Stated complaint Stated Complaint: BACK PX - Chief complaint Chief Complaint: Back Pain - History obtained from History obtained from: Patient - Additional information Additional information: 37-year-old woman with chronic recurrent back pain 3 "threw her back out" today while taking down [employer] ornaments. It is in the low back. Radiates into the but on either sides but not further. No weakness, numbness, tingling, saddle anesthesia, or fevers. No possibility of . States Flexeril has been helpful in the past. 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 - Present Medications Home Medications: Ambulatory Orders Medication Instructions Recorded Confirmed Levothyroxine Sodium [Synthroid] See Rx Instructions .ROUTE .COMPLEX 10/30/17 01/19/23 Meloxicam, Submicronized See Rx Instructions .ROUTE .COMPLEX 01/19/23 01/19/23 [Meloxicam] Cyclobenzaprine [Flexeril] 10 mg PO TID PRN #20 tablet 03/24/23 Ibuprofen [Motrin] 800 mg PO Q8H PRN #30 tablet 03/24/23 - Allergies Allergies/Adverse Reactions: Allergies Allergy/AdvReac Type Severity Reaction Status Date / Time No Known Drug Allergies Allergy Verified 02/20/23 08:43 - Social History Does the pt smoke?: Yes Smoking Status: Current every day smoker Does the pt drink ETOH?: Yes Does the pt have substance abuse?: No - Immunizations Immunizations are current?: Yes Immunizations: TDAP >10years/unknown PD ED PE NORMAL - Vitals Vital signs reviewed: Yes - General General: Alert and oriented X 3, Other (Appears uncomfortable especially with movement) - Abdomen Abdomen: Soft, Non tender - Back Back: Other (Tender to the paralumbar musculature in the low back) - Derm Derm: Normal color, Warm and dry - Extremities Extremities: Other (The patient has equal and normal Achilles and patellar reflexes bilaterally. Normal sensation in all areas of the legs. Patient denies saddle anesthesia. Normal strength in flexion-extension at the ankles, knees, and flexion of the hips.) - Neuro Neuro: Alert and oriented X 3 Results - Vitals Vitals: Vital Signs - 24 hr 03/24/23 18:32 Temperature 36.5 C Heart Rate 65 Respiratory 18 Rate Blood Pressure 125/87 H O2 Saturation 100 Oxygen O2 Source Room air PD Medical Decision Making - ED course ED course: This patient has seemingly uncomplicated musculoskeletal back pain. The patient has no "red flags." Specifically denies IV drug use, fevers, incontinence, saddle anesthesia. Spinal epidural abscess was considered, given that the patient has no fever, is not diabetic, has no spinal tenderness, does not use IV drugs, and has no bilateral neurologic symptoms, the diagnosis of spinal epidural abscess is considered exceedingly unlikely. Departure - Departure Disposition: Home, Self Care Clinical Impression: Back pain Qualifiers: Back pain location: low back pain Chronicity: acute Back pain laterality: midline Sciatica presence: without sciatica Qualified Code(s): M54.50 - Low back pain, unspecified Condition: Good Record reviewed to determine appropriate education?: Yes Instructions: ED Low Back Pain Injury Prescriptions: Cyclobenzaprine [Flexeril] 10 mg PO TID PRN #20 tablet PRN Reason: Spasms Ibuprofen [Motrin] 800 mg PO Q8H PRN #30 tablet PRN Reason: PAIN &/OR FEVER Comments: I sent the prescriptions electronically to [facility] in [place]. Do not drink or drive while taking muscle laxer. Call your doctor to arrange a follow- up appointment, make the next available appointment. In the interim, return anytime if worse or if new symptoms develop.
[2023-03-24 19:24] VITALS: BP 122/84
== END 2023-03-24 19:21 | disposition home or self-care (01) ==
LOC: ED 18:13
DX: M54.50 Low back pain, unspecified (principal); F17.200 Nicotine dependence, unspecified, uncomplicated
CPT/HCPCS: 96372; 99283; A9270